=== PATIENT | female | born 1980 | race Caucasian/White ===

== ENCOUNTER 2016-06-29 17:47 | Emergency (ER) | payer MEDICAID, OTHER ==
[~2016-06-29] VITALS: Ht 154.9 cm; Wt 54.7 kg
[2016-06-29 18:37] VITALS: Ht 154.9 cm; Wt 54.7 kg
--- NOTE | 2016-06-29 19:29 | RADRPT ---
PROCEDURE: US Pelvis. CLINICAL INDICATION: vaginal bleeding TECHNIQUE: Multiple sonographic images of the pelvis were obtained utilizing a transabdominal and endovaginal technique. The images were reviewed on a PACS workstation. COMPARISON: None. FINDINGS: The uterus is normal in size and demonstrates a normal appearance of the myometrium. The uterus fran ures 8.0 x 4.3 x 6.0 cm. The endometrial stripe is a homogeneous in appearance and has the thickness of 8 mm. No intrauterine gestation is noted. The ovaries are normal in size and echogenicity. Normal Doppler flow is identified in both ovaries. The right ovary measures 3.2 x 1.8 x 2.3 cm. There is a 1.5 cm hemorrhagic cyst within the right ova ry. The left ovary measures 3.1 x 1.2 x 1.6 cm. There is a 1 cm simple cyst in the left ovary. There is a small amount of free fluid in the pelvis. RPTAT: AA IMPRESSION: No intrauterine gestation visualized. Differential diagnosis includes early , missed or ectopic . Follow-up ultrasound and HCG levels is recommended. .Lamberto Santos MD, Date Time Electronically viewed and signed by .Lamberto Santos MD, on 06/29/2016 19:29 .S/
[2016-06-29 19:54] LABS: ADD SCAN DIFF NO
[2016-06-29 19:56] LABS: BASOPHILS % 0.5 % (0.0-2.0); EOSINOPHILS # 0.1 10^3/ul (0.0-0.5); EOSINOPHILS % 1.5 % (0.0-7.0); HEMATOCRIT 40.6 % (37.0-47.0); HEMOGLOBIN 13.9 g/dl (12.0-16.0); LYMPHOCYTES # 2.9 10^3/ul (0.8-2.9); LYMPHOCYTES % 39.3 % (15.0-51.0); MEAN CORPUSCULAR HEMOGLOBIN 29.8 pg (29.0-33.0); MEAN CORPUSCULAR HGB CONC 34.2 g/dl (32.0-37.0); MEAN CORPUSCULAR VOLUME 86.9 fl (82.0-101.0); MONOCYTE # 0.5 10^3/ul (0.3-0.9); MONOCYTES % 7.2 % (0.0-11.0); NEUTROPHIL # 3.8 10^3/ul (1.6-7.5); NEUTROPHILS % 51.2 % (39.0-77.0); PLATELET COUNT 358 10^3/UL (140-415); RED BLOOD COUNT 4.67 10^6/ul (4.20-5.40); RED CELL DISTRIBUTION WIDTH 12.7 % (11.5-14.5); WHITE BLOOD COUNT 7.4 10^3/ul (4.8-10.8)
[2016-06-29 19:56] LABS: ADD UMIC YES; URINE BILIRUBIN (Dip) NEGATIVE (NEGATIVE); URINE BLOOD (Dip) 1+ (NEGATIVE); URINE COLOR LT. YELLOW (YELLOW); URINE GLUCOSE (Dip) NEGATIVE (NEGATIVE); URINE KETONES (Dip) NEGATIVE (NEGATIVE); URINE LEUKOCYTE ESTERASE (Dip) NEGATIVE (NEGATIVE); URINE NITRITE (Dip) NEGATIVE (NEGATIVE); URINE TOTAL PROTEIN (Dip) NEGATIVE (NEGATIVE); URINE UROBILINOGEN (Dip) 0.2 E.U./dL (0.1-1.0)
[2016-06-29 20:06] LABS: SQUAMOUS EPITHELIAL CELL,UR FEW; URINE RBCS 0-2 /HPF (0)
--- NOTE | 2016-06-29 21:30 | ERD ---
ER Documentation Chief Complaint Date/Time DATE: 06/29/16 TIME: 21:27 Chief Complaint 5 1/2 wks with vaginal bleeding x 2 wks HPI 36-year-old female who is a presents to the ED stating that she is currently at 5 weeks. States that she has has been having vaginal spotting since 2 weeks ago. States that she saw her [facility] at [facility] and was seen to have blood in her Pap smear near her cervix. States that her last menses was on May 23, 2016. Denies any fever, abdominal pain , chest pain, shortness of breath, wheezing, vaginal discharge, nausea, vomiting , diarrhea. ROS All systems reviewed and are negative except as per history of present illness. PMhx/Soc History of Surgery: No Anesthesia Reaction: No Hx Neurological Disorder: No Hx Respiratory Disorders: No Hx Cardiac Disorders: No Hx Psychiatric Problems: No Hx Miscellaneous Medical Probl: No Hx Alcohol Use: No Hx Substance Use: No Hx Tobacco Use: No Physical Exam Vitals Vital Signs Date Time Temp Pulse Resp B/P Pulse Ox O2 Delivery O2 Flow Rate FiO2 06/29/16 21:36 97.0 95 20 120/69 100 Room Air 06/29/16 18:37 97.2 88 16 148/76 99 Physical Exam Const: Ync-lho-erbadcffe, well-nourished. In no acute distress. Head: Atraumatic, normocephalic Eyes: Normal Conjunctiva without injection. No purulent discharge. ENT: Normal external ear, nose. Moist oropharynx without tonsillar exudates. Non -erythematous pharynx. Uvula midline. No drooling. No trismus. Neck: No cervical midline tenderness. Full range of motion. No meningismus. No cervical lymphadenopathy. No JVD. Resp: Clear to auscultation bilaterally. No wheezing, rhonchi, rales, or crackles. No accessory muscle use. No retractions. Cardio: Regular rate and rhythm. No murmurs, rubs or gallops. Abd: Soft, nontender to palpation, non distended. Normal bowel sounds. No palpable masses. No rebound tenderness. No guarding. Negative McBurney's point. Negative psoas sign. Negative obturator sign. Skin: No petechiae or rashes Back: No midline tenderness. No CVA tenderness. Ext: No cyanosis, or edema. Neur: Awake and alert. Normal gait. Normal coordination. Psych: Normal Mood and Affect Result Diagram: 06/29/161944 Results 24 hrs Laboratory Tests Test 06/29/16 19:40 06/29/16 19:45 Urine Bilirubin NEGATIVE Urine Clarity CLEAR Urine Color LT. YELLOW Urine Glucose NEGATIVE% Urine Hemoglobin 1+ Urine Ketones NEGATIVE Urine Leukocyte Esterase NEGATIVE Urine Microscopic RBC 0-2/HPF Urine Microscopic WBC 0-2/HPF Urine Nitrite NEGATIVE Urine Specific [place] 1.020 Urine Squamous Epithelial Cells FEW Urine Total Protein NEGATIVE Urine Urobilinogen 0.2 E.U./dL Urine pH 6.0 Basophils # 0.010^3/ul Basophils % 0.5% Beta HCG, Quantitative 21.8mIU/ml Eosinophils # 0.110^3/ul Eosinophils % 1.5% Hematocrit 40.6% Hemoglobin 13.9g/dl Lymphocytes # 2.910^3/ul Lymphocytes % 39.3% Mean Corpuscular Hemoglobin 29.8pg Mean Corpuscular Hemoglobin Concent 34.2g/dl Mean Corpuscular Volume 86.9fl Mean Platelet Volume 10.0fl Monocytes # 0.510^3/ul Monocytes % 7.2% Neutrophils # 3.810^3/ul Neutrophils % 51.2% Nucleated Red Blood Cells # 0.010^3/ul Nucleated Red Blood Cells % 0.0/100WBC Platelet Count 10845^3/UL Red Blood Count 4.6710^6/ul Red Cell Distribution Width 12.7% White Blood Count 7.410^3/ul Procedures/MDM This is a 36-year-old female with no significant past medical history presents to the ED as a presents the ED complaining of vaginal bleeding that started 2 weeks ago. Patient is afebrile and nontoxic-appearing. An ultrasound , beta-hCG, CBC, type and RH, UA was ordered to evaluate patient. CBC: No evidence of severe infection or anemia Urine: No elevation in nitrites, leukocyte esterase, hematuria. No evidence of UTI Rh: O positive. No indication for Rhogam at this time. beta Hc.8 PROCEDURE: US Pelvis. CLINICAL INDICATION: vaginal bleeding TECHNIQUE: Multiple sonographic images of the pelvis were obtained utilizing a transabdominal and endovaginal technique. The images were reviewed on a PACS workstation. COMPARISON: None. FINDINGS: The uterus is normal in size and demonstrates a normal appearance of the myometrium. The uterus measures 8.0 x 4.3 x 6.0 cm. The endometrial stripe is a homogeneous in appearance and has the thickness of 8 mm. No intrauterine gestation is noted. The ovaries are normal in size and echogenicity. Normal Doppler flow is identified in both ovaries. The right ovary measures 3.2 x 1.8 x 2.3 cm. There is a 1.5 cm hemorrhagic cyst within the right ovary. The left ovary measures 3.1 x 1.2 x 1.6 cm. There is a 1 cm simple cyst in the left ovary. There is a small amount of free fluid in the pelvis. RPTAT: AA IMPRESSION: No intrauterine gestation visualized. Differential diagnosis includes early , missed or ectopic . Follow-up ultrasound and HCG levels is recommended. Patient's bleeding symptoms have stabilized while in the department. Low suspicion for symptomatic anemia, ectopic , sepsis, PID, appendicitis, ovarian torsion, tubo-ovarian abscess, surgical abdomen, or other emergent conditions. Patient was educated that there is a risk for threatened . Patient to follow up with [employer] in 2 days for further evaluation and treatment with a repeat beta hCG and ultrasound. Patient is to return sooner to the ED for any worsening symptoms. Patient's questions were answered. Patient understood and agreed with discharge plan. Departure Diagnosis: Primary Impression: Vaginal bleeding before 22 weeks gestation Condition: Stable Patient Instructions: Vaginal Bleed in Referrals: COMM[facility] CLIN[facility] YOU HAVE RECEIVED A MEDICAL SCREENING EXAM AND THE RESULTS INDICATE THAT YOU DO NOT HAVE A CONDITION THAT REQUIRES URGENT TREATMENT IN THE EMERGENCY DEPARTMENT. FURTHER EVALUATION AND TREATMENT OF YOUR CONDITION CAN WAIT UNTIL YOU ARE SEEN IN YOUR DOCTORS OFFICE WITHIN THE NEXT 1-2 DAYS. IT IS YOUR RESPONSIBILITY TO MAKE AN APPOINTMENT FOR FOLOW-UP CARE. IF YOU HAVE A PRIMARY DOCTOR --you should call your primary doctor and schedule an appointment IF YOU DO NOT HAVE A PRIMARY DOCTOR YOU CAN CALL OUR PHYSICIAN REFERRAL HOTLINE AT IF YOU CAN NOT AFFORD TO SEE A PHYSICIAN YOU CAN CHOSE FROM THE FOLLOWING [facility] CLINICS [facility] [address] [facility]. [facility] [address] [facility]. [facility] [address] [facility]. [facility] [address] [facility]. [facility] [address] [facility]. [facility]. [address] [facility]. [facility] YOU HAVE RECEIVED A MEDICAL SCREENING EXAM AND THE RESULTS INDICATE THAT YOU DO NOT HAVE A CONDITION THAT REQUIRES URGENT TREATMENT IN THE EMERGENCY DEPARTMENT. FURTHER EVALUATION AND TREATMENT OF YOUR CONDITION CAN WAIT UNTIL YOU ARE SEEN IN YOUR DOCTORS OFFICE WITHIN THE NEXT 1-2 DAYS. IT IS YOUR RESPONSIBILITY TO MAKE AN APPOINTMENT FOR FOLOW-UP CARE. IF YOU HAVE A PRIMARY DOCTOR --you should call your primary doctor and schedule and appointment IF YOU DO NOT HAVE A PRIMARY DOCTOR YOU CAN CALL OUR PHYSICIAN REFERRAL HOTLINE AT . IF YOU CAN NOT AFFORD TO SEE A PHYSICIAN YOU CAN CHOSE FROM THE FOLLOWING [facility] INSTITUTIONS: [facility] [address] [place] [address] [facility] [address] [place] [address] [facility] [address] [place] [address] [employer] [place] [address] [facility] [address] [place], [place] [phone] OFFICE FAX MATTIE JENNINGS [address] [place], [place] [id number] [facility] [address] [place], [place] [phone] [address] [place] [address] [facility], [address] [id number]ACY [address]MER [address] [place] [phone] [facility] [address] [place] [phone] [address] [facility] [place] [id number] - KIRSTIE LOVETT [address] [facility] [address] [address]NAND, KYLIE [address] [facility]. [address], [facility] [address] [address] GRAY, [facility] [address] [place] [address] [facility] Hours: 8:00 am - 5:00 pm Additional Instructions: FOLLOW UP IN 2 DAYS TO THE ED OR WITH [employer] FOR FURTHER EVALUATION AND TREATMENT WITH REPEAT BETA HCG AND ULTRASOUND. Return to this facility if you are not improving as expected. CARMELO GERBER PA-C Jun 29, 2016 21:30
[2016-06-29 21:36] VITALS: BP 120/69; PULSE 95; RESP 20; TEMP 97
== END 2016-06-29 21:44 | disposition home or self-care (01) ==
LOC: FTE 17:47
DX: O20.9 Hemorrhage in early pregnancy, unspecified (principal); Z3A.01 Less than 8 weeks gestation of pregnancy
CPT/HCPCS: 36415; 76801; 76817; 81001; 84702; 85025; 86900; 86901; Z7502; 81003

== ENCOUNTER 2016-06-30 12:17 | Emergency (ER) | payer MEDICAID ==
[~2016-06-30] VITALS: Ht 154.9 cm; Wt 53.8 kg
[2016-06-30 12:41] VITALS: Ht 154.9 cm; Wt 53.8 kg
[2016-06-30 13:46] LABS: URINE BLOOD (Dip) POC 2+ (NEGATIVE)
[2016-06-30 13:51] LABS: ADD SCAN DIFF NO
[2016-06-30 13:59] LABS: BASOPHILS % 0.5 % (0.0-2.0); EOSINOPHILS # 0.1 10^3/ul (0.0-0.5); EOSINOPHILS % 0.6 % (0.0-7.0); HEMATOCRIT 41.6 % (37.0-47.0); HEMOGLOBIN 14.3 g/dl (12.0-16.0); LYMPHOCYTES # 2.2 10^3/ul (0.8-2.9); LYMPHOCYTES % 26.6 % (15.0-51.0); MEAN CORPUSCULAR HEMOGLOBIN 29.7 pg (29.0-33.0); MEAN CORPUSCULAR HGB CONC 34.4 g/dl (32.0-37.0); MEAN CORPUSCULAR VOLUME 86.3 fl (82.0-101.0); MONOCYTE # 0.5 10^3/ul (0.3-0.9); MONOCYTES % 6.2 % (0.0-11.0); NEUTROPHIL # 5.3 10^3/ul (1.6-7.5); NEUTROPHILS % 65.7 % (39.0-77.0); PLATELET COUNT 361 10^3/UL (140-415); RED BLOOD COUNT 4.82 10^6/ul (4.20-5.40); RED CELL DISTRIBUTION WIDTH 12.7 % (11.5-14.5); WHITE BLOOD COUNT 8.1 10^3/ul (4.8-10.8)
--- NOTE | 2016-06-30 14:16 | RADRPT ---
PROCEDURE: US Pelvis/OB. CLINICAL INDICATION: vaginal bleeding TECHNIQUE: Multiple sonographic images of the pelvis were obtained utilizing a transabdominal and endovaginal technique. The images were reviewed on a PACS workstation. COMPARISON: 06/29/2016 FINDINGS: The endometrium measures 6 mm in thickness. There is a questionable cystic structure adjacent to the endometrium measuring 0.2 cm which is too s mall for measurements. No pole or yolk sac is yet visualized. The ovaries are normal. No abnormal adnexal masses are present. The right ovary measures 2.7 x 1.6 x 1.9 cm. The left ovary measures 2.4 x 1.6 x 1.7 cm. No significant free fluid is present within the pelvis. RPTAT: AA IMPRESSION: Questionable early intrauterine , too small for measurements. Close followup ultrasound and hCG is recommended. .Lamberto Santos MD, Date Time Electronically viewed and signed by .Lamberto Santos MD, on 06/30/2016 14:16 .S/
--- NOTE | 2016-06-30 17:32 | ERD ---
ER Documentation Chief Complaint Date/Time DATE: 06/30/16 TIME: 17:26 Chief Complaint VAGINAL BLEEDING X 2 DAYS- 6 WEEKS , PAIN IN LOWER ABD AND BACK HPI This patient is a 36-year-old female who is who is reportedly 6 weeks presenting to the emergency department for vaginal bleeding and suprapubic cramping ongoing intermittently for the past 2 days. The patient was seen here yesterday for the same complaints and was told her beta hCG was very low which may have indicated missed . There was no IUP seen yesterday on ultrasound. The patient states her suprapubic cramping is bilateral and radiates to the back. She states her vaginal bleeding has been increasing. The patient denies any fevers, chills, nausea, vomiting, diarrhea, or other symptoms at this time. ROS All systems reviewed and are negative except as per history of present illness. Allergies Allergies: Coded Allergies: No Known Allergy (Unverified , 06/30/16) PMhx/Soc Medical and Surgical Hx: pt denies Medical Hx, pt denies Surgical Hx History of Surgery: No Anesthesia Reaction: No Hx Neurological Disorder: No Hx Respiratory Disorders: No Hx Cardiac Disorders: No Hx Psychiatric Problems: No Hx Miscellaneous Medical Probl: No Hx Alcohol Use: No Hx Substance Use: No Hx Tobacco Use: No FmHx Noncontributory for chief complaint Physical Exam Vitals Vital Signs Date Time Temp Pulse Resp B/P Pulse Ox O2 Delivery O2 Flow Rate FiO2 06/30/16 12:41 97.7 88 18 111/71 99 Physical Exam INITIAL VITAL SIGNS: Reviewed by me. GENERAL: Alert and interactive. No acute distress. HEAD: Head is normocephalic and atraumatic. EYES: EOMI. No scleral icterus. No conjunctival injection. ENT: Moist mucosa. NECK: Supple. Full range of motion. RESPIRATORY: Normal respiratory effort. Clear breath sounds bilaterally. No wheezing, rales, or rhonchi. CV: Regular rate and rhythm. Normal S1 S2. No S3 or S4. No murmurs. ABDOMEN: Soft, non-distended, non-tender. No guarding. No rebound. No masses. : There is mild suprapubic tenderness to palpation bilaterally. There is no CVA tenderness. EXTREMITIES: No deformity. SKIN: Warm and dry. NEUROLOGIC: Alert and oriented x 4. Speech is normal. Moves all extremities equally. No motor or sensory deficits noted. Result Diagram: 06/30/16 1346 Results 24 hrs Laboratory Tests Test 06/30/16 13:46 06/30/16 13:48 Basophils # 0.010^3/ul Basophils % 0.5% Beta HCG, Quantitative 14.5mIU/ml Eosinophils # 0.110^3/ul Eosinophils % 0.6% Hematocrit 41.6% Hemoglobin 14.3g/dl Lymphocytes # 2.210^3/ul Lymphocytes % 26.6% Mean Corpuscular Hemoglobin 29.7pg Mean Corpuscular Hemoglobin Concent 34.4g/dl Mean Corpuscular Volume 86.3fl Mean Platelet Volume 10.0fl Monocytes # 0.510^3/ul Monocytes % 6.2% Neutrophils # 5.310^3/ul Neutrophils % 65.7% Nucleated Red Blood Cells # 0.010^3/ul Nucleated Red Blood Cells % 0.0/100WBC Platelet Count 57431^3/UL Red Blood Count 4.8210^6/ul Red Cell Distribution Width 12.7% White Blood Count 8.110^3/ul Bedside Urine Blood 2+ Bedside Urine Glucose (UA) Negative Bedside Urine Ketones (LAB) Negative Bedside Urine Leukocyte Esterase (L Negative Bedside Urine Nitrite (LAB) Negative Bedside Urine Protein (LAB) Negative Bedside Urine pH (LAB) 5.5 Procedures/MDM EMERGENCY DEPARTMENT COURSE / MEDICAL DECISION MAKING: This is a 36-year-old female who comes to the emergency room secondary to complaints of suprapubic cramping and vaginal bleeding. Lab results reviewed and showed downtrending beta hCG from 24 to 14. CBC shows no signs of anemia or leukocytosis. Urine analysis shows no signs concerning for urinary tract infection or proteinuria. Radiology: PROCEDURE: US Pelvis/OB. CLINICAL INDICATION: vaginal bleeding TECHNIQUE: Multiple sonographic images of the pelvis were obtained utilizing a transabdominal and endovaginal technique. The images were reviewed on a PACS workstation. COMPARISON: 06/29/2016 FINDINGS: The endometrium measures 6 mm in thickness. There is a questionable cystic structure adjacent to the endometrium measuring 0.2 cm which is too small for measurements. No pole or yolk sac is yet visualized. The ovaries are normal. No abnormal adnexal masses are present. The right ovary measures 2.7 x 1.6 x 1.9 cm. The left ovary measures 2.4 x 1.6 x 1.7 cm. No significant free fluid is present within the pelvis. RPTAT: AA IMPRESSION: Questionable early intrauterine , too small for measurements. Close followup ultrasound and hCG is recommended. .Lamberto Santos MD, Date Time Electronically viewed and signed by .Lamberto Santos MD, on 06/30/2016 14: 16 Based off of the clinical findings the patient is most likely had a missed due to the fact that her beta hCG is downtrending since yesterday and there is no IUP identified. The patient was advised to return to the department immediately with any new or worsening symptoms and she demonstrates good understanding of this information. 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 The primary diagnosis is vaginal bleeding before 22 weeks of gestation. Secondary diagnosis is missed . The patient and I had a long discussion regarding her diagnosis and she demonstrates good understanding. I have low suspicion for ectopic , retained products of conception, ovarian torsion, or other emergent conditions at this time. Discharge: I have discussed the lab results and diagnostic findings with the patient and answered any questions or concerns. The patient was advised she may take Tylenol at home for relief of pain. The patient was advised to followup with their PMD in 1-2 days and to return to the Emergency Department if there are any new or worsening symptoms. The patient understood and agreed with the diagnosis, treatment and plan. The patient is stable for discharge at this time. Departure Diagnosis: Primary Impression: Vaginal bleeding before 22 weeks gestation Additional Impression: Missed ab Condition: Fair Patient Instructions: Missed Miscarriage Referrals: [facility]) Usted se gaspar hecho un examen mdico de control que le indica que no est en rhys condicin que requiera tratamiento urgente en el Departamento de Emergencia. Un estudio ms profundo y el tratamiento de morales condicin pueden esperar sin ningn riesgo hasta que usted sea atendida/o en el consultorio de morales mdico o rhys cl pipo. Es responsabilidad suya arreglar hrys denis para el seguimiento del dinesh. MANEJO DE CONDICIONES NO URGENTES EN EL FUTURO 1) Si usted tiene un mdico de atencin primaria: Usted debera llamar a morales mdico de atencin primaria antes de venir al departamento de emergencia. Despus de las horas de consultorio, morales doctor o morales asociado/a est disponible por telfono. El mdico o enfermero de trista en el servicio telefnico puede asesorarle por kira medio para atender el problema, o dinesh contrario se puede programar rhys denis. 2) Si usted no tiene un mdico de atencin primaria: Llame al mdico o clnica de referencia que aparece abajo arnoldo las horas de consultorio para hacer rhys denis para que le vean. CLINICAS: [facility] [phone] [facility] [phone] [facility] [facility] [phone] [facility]. [place] [id number] [phone] [facility]. [place] [phone] [place] [phone] [address] Additional Instructions: Follow-up with your primary care physician within 1 week. Return to the emergency department immediately should you have any new or worsening symptoms, uncontrolled fevers, or other unexplained symptoms. Take all medications as directed. AVILA BEYER PA-C Jun 30, 2016 17:31
== END 2016-06-30 15:01 | disposition home or self-care (01) ==
LOC: FTE 12:17
DX: O02.1 Missed abortion (principal)
CPT/HCPCS: 36415; 76801; 76817; 81003; 84702; 85025; Z7502

== ENCOUNTER 2018-09-24 11:51 | Emergency (ER) | payer MEDICAID, OTHER ==
[~2018-09-24] VITALS: Ht 160 cm; Wt 53.2 kg
[2018-09-24 11:53] VITALS: Ht 160 cm; Wt 53.2 kg
[2018-09-24] MEDS ORDERED: IBUP-1542 PO (13:33)
--- NOTE | 2018-09-24 13:41 | ERD ---
ER Documentation Chief Complaint Chief Complaint lt foot pinky toe swelling , hit on corner on bed yesterday HPI Patient is a 38-year-old female presents the ER for concerns of left pinky toe pain and swelling x1 day. Patient states she hit her toe on the bedpost yesterday. Patient states she has pain with walking. Patient denies previous fractures or dislocations. Patient has no fevers or chills. ROS All systems reviewed and are negative except as per history of present illness. Medications Home Meds Active Scripts Ibuprofen* (Motrin*) 600 Mg Tab, 600 MG PO Q6, #30 TAB Prov:MIGUEL ANGEL RICE PA-C 09/24/18 Allergies Allergies: Coded Allergies: No Known Allergy (Unverified , 06/30/16) PMhx/Soc History of Surgery: No Anesthesia Reaction: No Hx Neurological Disorder: No Hx Respiratory Disorders: No Hx Cardiac Disorders: No Hx Psychiatric Problems: No Hx Miscellaneous Medical Probl: No Hx Alcohol Use: No Hx Substance Use: No Hx Tobacco Use: No FmHx Family History: No diabetes Physical Exam Vitals Vital Signs Date Temp Pulse Resp B/P (MAP) Pulse Ox O2 O2 Flow FiO2 Time Delivery Rate 09/24/18 98.0 92 18 116/65 98 11:53 (82) Physical Exam GENERAL: Well-developed, well-nourished male. Appears in no acute distress. HEAD: Normocephalic, atraumatic. EYES: Pupils are equally reactive bilaterally. EOMs grossly intact. No conjunctival erythema. ENT: Moist mucous membranes. No uvula deviation. No kissing tonsils. NECK: Supple. No meningismus. Normal range of motion of the neck. LUNG: Clear to auscultation bilaterally. No rhonchi, wheezing, rales or coarse breath sounds. HEART: Regular rate and rhythm. No murmurs, rubs or gallops. EXTREMITIES: Equal pulses bilaterally. No peripheral clubbing, cyanosis or edema. No unilateral leg swelling. NEUROLOGIC: Alert and oriented. Moving all four extremities without any difficulty. Normal speech. Steady gait. SKIN: Normal color. Warm and dry. No rashes or lesions. LLE: Mild swelling and ecchymosis noted to the fifth left toe. Tender to palpation of the fifth left toe. Nontender palpation of the midfoot, fifth metatarsal, medial or lateral malleolus. Sensation intact to light touch. Neurovascularly intact. (Able to plantarflex, dorsiflex, atul foot, invert foot, raise big toe.) 2+ DP and DT pulses. Procedures/MDM ED COURSE: The patient was stable throughout ED course. I kept the patient and/or family informed of laboratory and diagnostic imaging results throughout the ED course. DIAGNOSTIC IMAGING: Read by radiologist. DIAGNOSTIC IMAGING REPORT Patient: TATY MOSS : 1980 Age: 38 Sex: F MR #: [id number] DOS: 09/24/18 1253 Ordering MD: MIGUEL ANGEL RICE PA-C Location: [facility] Room/Bed: PROCEDURE: XR Left Foot. CLINICAL INDICATION: 5ht toe pain TECHNIQUE: AP, lateral and oblique views of the left foot was obtained. The images were reviewed on a PACS workstation. COMPARISON: None. FINDINGS: Acute, mildly displaced fracture of the fifth toe proximal phalanx. No intra- articular extension detected. Soft tissue swelling. No joint dislocation. IMPRESSION: Acute, mildly displaced fracture of the fifth toe proximal phalanx. RPTAT:AAJJ Physician Spencer Date Time Electronically viewed and signed by Physician Spencer on 09/24/2018 13:25 RF/ CC: MIGUEL ANGEL RICE PA-C [id number] PROCEDURES: SPLINT APPLICATION: The patient was verbally consented at bedside prior to splint application. Patient was explained the risks, benefits and alternatives to this procedure. The patient was neurovascularly intact prior to and status post application of the splint. The patient tolerated the procedure well with no complications. Splint type: maryse tape and ortho shoe Extremity: left Indication: Acute, mildly displaced fracture of the fifth toe proximal phalanx. MEDICAL DECISION MAKING: This is a 38-year-old female presents ER for concerns of left PE toe pain after hitting it on the bedpost.. Vital signs were reviewed. Patient was afebrile. X-ray imaging did show a toe fracture. Patient was given maryse tape. Patient was advised to follow-up with it infrastructure specialist. Patient was also given Ortho shoe. Low suspicion for ankle dislocation, tibia fracture, fibula fracture, ankle fracture, tarsal bone fracture, metatarsal fracture, gout, septic joint, reactive arthritis, psoriatic arthritis, DVT, compartment syndrome, plantar fasciitis, diabetic neuropathy or pes planus. At this time, unable to rule out any tendon and ligament injuries. PRESCRIPTIONS: Ibuprofen DISCHARGE: At this time, patient is stable for discharge and outpatient management. RICE therapy and ROM exercises were advised to avoid stiffness. I have instructed the patient to follow-up with his/her primary care physician in 1-2 days. I have discussed with the patient the possibility of needing to see an it infrastructure specialist for further workup and imaging if the pain persists. I have instructed the patient to promptly return to the ER for any new or worsening symptoms including increased pain, swelling, redness, warmth or fever. The patient and/or family expressed understanding of and agreement with this plan. All questions were answered. Home care instructions were provided. Disclaimer: Inadvertent spelling and grammatical errors are likely due to EHR/dictation software use and do not reflect on the overall quality of patient care. Also, please note that the electronic time recorded on this note does not necessarily reflect the actual time of the patient encounter. Departure Diagnosis: Primary Impression: Toe fracture Encounter type: initial encounter Toe: unspecified toe Fracture type: closed Fracture alignment: nondisplaced Laterality: unspecified laterality Qualified Codes: S92.919A - Unspecified fracture of unspecified toe(s), initial encounter for closed fracture Condition: Fair Patient Instructions: Fracture, Toe [Closed] Referrals: [facility] YOU HAVE RECEIVED A MEDICAL SCREENING EXAM AND THE RESULTS INDICATE THAT YOU DO NOT HAVE A CONDITION THAT REQUIRES URGENT TREATMENT IN THE EMERGENCY DEPARTMENT. FURTHER EVALUATION AND TREATMENT OF YOUR CONDITION CAN WAIT UNTIL YOU ARE SEEN IN YOUR DOCTORS OFFICE WITHIN THE NEXT 1-2 DAYS. IT IS YOUR RESPONSIBILITY TO MAKE AN APPOINTMENT FOR FOLOW-UP CARE. IF YOU HAVE A PRIMARY DOCTOR --you should call your primary doctor and schedule an appointment IF YOU DO NOT HAVE A PRIMARY DOCTOR YOU CAN CALL OUR PHYSICIAN REFERRAL HOTLINE AT IF YOU CAN NOT AFFORD TO SEE A PHYSICIAN YOU CAN CHOSE FROM THE FOLLOWING [facility] [address] [facility] [address] [facility] [address] [facility] [address] [facility] [facility] [facility] [address] [facility]. [facility]. [address] [facility]. [facility] YOU HAVE RECEIVED A MEDICAL SCREENING EXAM AND THE RESULTS INDICATE THAT YOU DO NOT HAVE A CONDITION THAT REQUIRES URGENT TREATMENT IN THE EMERGENCY DEPARTMENT. FURTHER EVALUATION AND TREATMENT OF YOUR CONDITION CAN WAIT UNTIL YOU ARE SEEN IN YOUR DOCTORS OFFICE WITHIN THE NEXT 1-2 DAYS. IT IS YOUR RESPONSIBILITY TO MAKE AN APPOINTMENT FOR FOLOW-UP CARE. IF YOU HAVE A PRIMARY DOCTOR --you should call your primary doctor and schedule and appointment IF YOU DO NOT HAVE A PRIMARY DOCTOR YOU CAN CALL OUR PHYSICIAN REFERRAL HOTLINE AT . IF YOU CAN NOT AFFORD TO SEE A PHYSICIAN YOU CAN CHOSE FROM THE FOLLOWING [facility]: [facility] [address] [place] [address] [facility] [address] [place] [address] [facility] [address] [place] [address] [facility] Care 7 a.m.- 11 p.m. Every Day of the Week NO APPOINTMENT OR AUTHORIZATION NEEDED Additional Instructions: Follow up with it infrastructure specialist. Call your primary care doctor TOMORROW for an appointment during the next 1-2 days.See the doctor sooner or return here if your condition worsens before your appointment time. MIGUEL ANGEL RICE PA-C September 24, 2018 13:41
[2018-09-24 13:59] VITALS: BP 122/75; PULSE 75; RESP 18
== END 2018-09-24 14:02 | disposition home or self-care (01) ==
LOC: FTE 11:51
DX: S92.512A Displaced fracture of proximal phalanx of left lesser toe(s), initial encounter for closed fracture (principal); W22.8XXA Striking against or struck by other objects, initial encounter; Y92.9 Unspecified place or not applicable